=== PATIENT | female | born 2000 | race American Indian/Alaskan Native ===

== ENCOUNTER 2018-11-16 16:10 | Emergency (ER) | payer MEDICAID ==
[2018-11-16] MEDS ORDERED: IBUPROFEN PO ONE ×2 (16:17→16:21)
--- NOTE | 2018-11-16 16:17 | Emergency Department Report ---
Blank Doc - Documentation Documentation: This is a 18-year-old female that presents with sore throat and body aches. F ever in traiage. This initial assessment/diagnostic orders/clinical plan/treatment(s) is/are subject to change based on patient's health status, clinical progression and re- assessment by fellow clinical providers in the ED. Further treatment and workup at subsequent clinical providers discretion. Patient/guardians urged not to elope from the ED as their condition may be serious if not clinically assessed and managed. Initial orders include: 1- Patient sent to [facility] for further evaluation and treatment 2- Strep swab 3- motrin for fever
[2018-11-16 16:18] VITALS: BP 111/66
[2018-11-16] MEDS ORDERED: TRIMOX PO ONE (16:40)
--- NOTE | 2018-11-16 16:40 | Emergency Department Report ---
Minor Respiratory (Peds) - HPI Chief Complaint: Sore Throat Stated Complaint: BODY ACHE/SORE THROAT Time Seen by Provider: 11/16/18 16:16 Duration: 3 Days Pain Location: Throat Pain Severity: Mild Symptoms: Yes Fever, Yes Sore Throat, Yes Able to Tolerate Fluids, Yes Good Urine Output, Yes Active and Alert, No Rhinorrhea, No Ear Pain, No Cough, No Shortness of Breath, No Sick Contacts Other History: Patient is a 18-year-old female comes to the ER with her mother complaining of a sore throat. Patient has a low-grade temperature in triage. Also complaining of a headache. Patient is sitting up playing on her phone, nontoxic, no vomiting, no photophobia. Patient denies past medical history is on no home medications and denies previous surgeries. ED Review of Systems ROS: Stated complaint: BODY ACHE/SORE THROAT Other details as noted in HPI Comment: All other systems reviewed and negative Constitutional: see HPI, fever ENT: as per HPI, throat pain Pediatric Past Medical History - Chronic Health Problems Hx Asthma: No Hx Diabetes: No Hx HIV: No Hx Renal Disease: No Hx Sickle Cell Disease: No Hx Seizures: No Peds Minor Resp. exam - Exam General: Vital signs noted. No distress. Alert and acting appropriately. Alert and oriented 4. Moving all extremities. No photophobia. Patient playing on cell phone during exam. No vomiting. S1 and S2 with no murmur or bruit or rub lungs clear to auscultation abdomen soft nontender with no CVA tenderness Peds HEENT: Pharyngeal Erythema: Yes, Pharyngeal Exudates: Yes, Moist Mucous Membranes: Yes, Rhinorrhea: No, Conjuctival Injection: No Ear: Neither TM Bulge, Neither TM Erythema, Neither EAC Discharge Peds neck exam: Adenopathy: No, Supple: Yes Peds Lung exam: Good Air Exchange: Yes, Wheezes: No, Stridor: No, Cough: No, Nasal Flaring: No, Retractions: No, Use of Accessory Muscles: No Heart: Yes Regular, No Murmur Peds abdomen: Abdominal Tenderness: No, Peritoneal Signs: No, Normal Bowel Sounds: Yes, Distention: No Peds Skin Exam: Rash: No, Eczema: No Neurologic: Alert and oriented, no deficits. Musculoskeletal: Unremarkable. ED Course Vital Signs 11/16/18 11/16/18 16:17 16:37 Temperature 100.2 F H Pulse Rate 88 Respiratory 16 18 Rate Blood Pressure 111/66 O2 Sat by Pulse 98 Oximetry ED Medical Decision Making - Medical Decision Making medicated in ER exudate left tonsil abc intact no abscess no ludwigs controlling secretions taking po dc home with family and dc plan of care. amox for 10 days Vital Signs 11/16/18 11/16/18 11/16/18 16:17 16:37 16:52 Temperature 100.2 F H Pulse Rate 88 Respiratory 16 18 16 Rate Blood Pressure 111/66 O2 Sat by Pulse 98 Oximetry strep pending Critical care attestation.: If time is entered above; I have spent that time in minutes in the direct care of this critically ill patient, excluding procedure time. ED Disposition Clinical Impression: Exudative pharyngitis Disposition: DC-01 TO HOME OR SELFCARE Is pt being admited?: No Does the pt Need Aspirin: No Condition: Stable Instructions: Pharyngitis (ED) Additional Instructions: HYDRATE WELL WITH WATER MOTRIN OR TYLENOL FOR FEVER OR PAIN MED ORDERED TODAY UNTIL GONE FOLLOW UP PCP REFERRAL BELOW DIET AND ACTIVITY TOLERATED Referrals: [facility] [Outside] - 3-5 Days Time of Disposition: 17:01
== END 2018-11-16 17:54 | disposition home or self-care (01) ==
LOC: ED 16:10
DX: J02.9 Acute pharyngitis, unspecified (principal)
CPT/HCPCS: 99282